=== PATIENT | female | born 1955 | race Caucasian/White ===

== ENCOUNTER 2020-12-12 20:39 | Emergency (ER) | payer MEDICARE ==
[~2020-12-12] VITALS: Ht 162.6 cm; Wt 61.4 kg
--- NOTE | 2020-12-12 21:15 | NUR ---
PT AMBULATED TO ROOM. C/O DIZZINESS AND MILD DISCOMFORT TO RIGHT SIDE MOUTH, POST BIOPSY TODAY.
[2020-12-12] MEDS ORDERED: ONDANSETRON ODT 4 MG PO ONE (21:30)
[2020-12-12] MEDS ORDERED: ONDANSETRON ODT 4 MG ONE (21:45)
--- NOTE | 2020-12-12 21:48 | NUR ---
PT A&OX4, C/O NAUSEA. MEDS GIVEN PER EMAR AND PT SITTING UP IN BED NO DISTRESS. STUNNER ANIMAL TO DRAW BLOOD. PT ON CR MONITOR, AND AT BEDSIDE.
[2020-12-12 21:59] LABS: BASOPHILS % (AUTO) 1 % (0-1); EOSINOPHILS % (AUTO) 1 % (1-7); LYMPHOCYTES % (AUTO) 19 % (22-44); MEAN CORPUSCULAR HEMOGLOBIN 32.7 pg (27.0-34.8); MEAN CORPUSCULAR HGB CONC 34.6 g/dL (32.4-35.8); MEAN PLATELET VOLUME 8.4 fL (7.4-10.4); MONOCYTES % (AUTO) 8 % (2-9); NEUTROPHILS % (AUTO) 73 % (42-75); PLATELET COUNT 207 x10^3/uL (130-400); RED BLOOD COUNT 4.29 x10^6/uL (3.82-5.3)
[2020-12-12 22:07] LABS: MD NO
[2020-12-12 22:13] LABS: ALANINE AMINOTRANSFERASE 35 U/L (12-78); ANION GAP 9 mmol/L (5-15); CALCIUM 8.7 mg/dL (8.5-10.1); CHLORIDE 101 mmol/L (98-107)
[2020-12-12 22:18] LABS: ALKALINE PHOSPHATASE 86 U/L (45-117); BILIRUBIN,TOTAL 0.5 mg/dL (0.2-1.0); CREATININE 0.65 mg/dL (0.55-1.02); TOTAL PROTEIN 7.8 g/dL (6.4-8.2); TROPONIN I < 0.015 ng/mL (0.000-0.045)
--- NOTE | 2020-12-12 23:02 | NUR ---
pt standing in room, in position of comfort. no acute distress, and cup of water provided to pt.
[2020-12-12 23:03] VITALS: BP 122/68
== END 2020-12-12 23:33 | disposition home or self-care (01) ==
LOC: ED 22:01
DX: K13.79 Other lesions of oral mucosa (principal); R11.0 Nausea; R42 Dizziness and giddiness; R53.1 Weakness; M19.90 Unspecified osteoarthritis, unspecified site
CPT/HCPCS: 36415; 80053; 84484; 85025; 93005; 99284; Q0162

== ENCOUNTER 2021-05-18 08:39 | Observation (INO) | payer MEDICARE ==
[~2021-05-18] VITALS: Ht 162.6 cm; Wt 55.1 kg
--- NOTE | 2021-05-18 08:49 | NUR ---
record press tender: EKG done in triage
--- NOTE | 2021-05-18 08:59 | NUR ---
C/O CP that started a couple of hours ago, down the middle of my chest, I thought it was heartburn but it kept getting worse, diaphoresis, I'm a retired nurse. This morning, took: Omeprazole 20mg, tylenol 350mg 0700 for fever, Mucinex for cough, Xanax 0.25mg. Pain currently 04/12. Hx: Pemphigus Vulgaris (auto-immune disease). Able to speak in complete sentences w/out difficulty. Intermittent cough noted. imaging specialist applied: KERON.
[2021-05-18] MEDS ORDERED: ALPR0.5T7 PO (09:17)
[2021-05-18] MEDS ORDERED: calcium PO (09:17)
[2021-05-18] MEDS ORDERED: multivitamin (09:17)
[2021-05-18] MEDS ORDERED: OMEP20CA20 PO (09:17)
[2021-05-18] MEDS ORDERED: DOXY25TA18 PO (09:17)
[2021-05-18] MEDS ORDERED: MELA3TAB31 PO (09:17)
[2021-05-18] MEDS ORDERED: LUTE20TA PO (09:17)
[2021-05-18] MEDS ORDERED: [UNRECOGNIZED DRUG - OTHER] (09:17)
[2021-05-18] MEDS ORDERED: PSYLLIUM (09:17)
[2021-05-18] MEDS ORDERED: vitamin D (09:17)
[2021-05-18] MEDS ORDERED: FLUC150T2 PO (09:17)
[2021-05-18] MEDS ORDERED: DEXTROMETHORPHAN PO (09:17)
[2021-05-18] MEDS ORDERED: PRED10TA PO (09:17)
[2021-05-18] MEDS ORDERED: SODIUM CHLORIDE FLUSH 10ML SYR IVF ONE (09:30)
[2021-05-18] MEDS ORDERED: ASPIRIN 81 MG TABLET CHEW PO ONE (09:30)
[2021-05-18] MEDS ORDERED: ASPIRIN 81 MG TABLET CHEW ONE (09:33)
[2021-05-18] MEDS ORDERED: NITROGLYCERIN SINGLE TAB 0.4 MG SL ONE (09:33)
[2021-05-18] MEDS: NITROGLYCERIN SINGLE TAB 0.4 MG SL PRN ×2 (09:36→09:39)
[2021-05-18 09:39] LABS: BASOPHILS % (AUTO) 0 % (0-1); EOSINOPHILS % (AUTO) 0 % (1-7); LYMPHOCYTES % (AUTO) 19 % (22-44); MEAN CORPUSCULAR HEMOGLOBIN 31.6 pg (27.0-34.8); MEAN CORPUSCULAR HGB CONC 33.9 g/dL (32.4-35.8); MEAN PLATELET VOLUME 8.1 fL (7.4-10.4); MONOCYTES % (AUTO) 9 % (2-9); NEUTROPHILS % (AUTO) 72 % (42-75); PLATELET COUNT 210 x10^3/uL (130-400); RED BLOOD COUNT 4.57 x10^6/uL (3.82-5.3); RED CELL DISTRIBUTION WIDTH 13.5 % (9.6-15.2)
--- NOTE | 2021-05-18 09:39 | NUR ---
pt refused to chew ASA tabs. States she can't chew due to her auto-immune disease. Requested water in order to swallow tabs.
[2021-05-18 09:50] LABS: ALANINE AMINOTRANSFERASE 34 U/L (12-78); ALBUMIN 3.3 g/dL (3.4-5.0); ANION GAP 9 mmol/L (5-15); CALCIUM 8.9 mg/dL (8.5-10.1); CHLORIDE 100 mmol/L (98-107); CREATININE 0.76 mg/dL (0.55-1.02)
[2021-05-18 09:55] LABS: ALKALINE PHOSPHATASE 72 U/L (45-117); BILIRUBIN,TOTAL 0.4 mg/dL (0.2-1.0); TOTAL PROTEIN 6.9 g/dL (6.4-8.2); TROPONIN I < 0.015 ng/mL (0.000-0.045)
--- NOTE | 2021-05-18 10:31 | NUR ---
PT RESTING ON [facility] HAVING CONVERSATION W/ SPOUSE. CARDIAC MONTINORING IN PROGRESS: NSR. RATES PAIN AT 12/11. PT AWAITING DISPOSITION
--- NOTE | 2021-05-18 11:18 | NUR ---
AMBULATORY TO & FROM [facility] W/OUT INCIDENT; GAIT STEADY.
--- NOTE | 2021-05-18 11:41 | NUR ---
PT ASKED SPOUSE TO BRING HER MEDS TO HOSPITAL. INSTRUCTED PT TO NOT TAKE HER OWN MEDS W/OUT GETTING APPROVAL FROM PHYSICIAN FIRST; UNDERSTANDING VERBALIZED.
--- NOTE | 2021-05-18 11:42 | NUR ---
PT STATES SHE TOOK XANAX 0.25MG A COUPLE OF MINUTES AGO. "IT WAS IN MY PURSE AND I TAKE IT THREE TIMES A DAY". WILL INFORM RECEIVING RN.
--- NOTE | 2021-05-18 11:52 | NUR ---
PT REPORT TO SHERLYN BOOGIE FOR ROOM [id number]
[2021-05-18 12:42] VITALS: BP 114/77
[2021-05-18 14:57] VITALS: BP 124/68
[2021-05-18] MEDS ORDERED: ONDANSETRON 2MG/ML, 2ML IV PRN (15:00)
[2021-05-18] MEDS ORDERED: morphine SULFATE 10 MG/ML, 1ML IVPush PRN (15:00)
[2021-05-18] MEDS ORDERED: NITROGLYCERIN 0.4 MG BOTTLE (25 TABS) SL PRN (15:00)
[2021-05-18] MEDS ORDERED: NITROGLYCERIN 0.4 MG/SPRAY SL PRN (15:00)
[2021-05-18] MEDS ORDERED: BISACODYL 10 MG SUPP PR PRN (15:00)
[2021-05-18] MEDS ORDERED: HYDROcodone/APAP 5/325 TABLET PO PRN (15:00)
[2021-05-18] MEDS ORDERED: ASPIRIN 325 MG TABLET EC PO ONE (15:00)
[2021-05-18 15:30] LABS: CHOLESTEROL, TOTAL 196 mg/dL (140-239)
[2021-05-18 15:34] LABS: HDL CHOL % 49 % (28-40); HDL CHOLESTEROL (DIRECT) 96 mg/dL (40-60); LDL CHOLESTEROL,CALCULATED 78 mg/dL (54-169); LDL/HDL RATIO 0.8 (0.5-3.0); TRIGLYCERIDES 110 mg/dL (50-200); TROPONIN I < 0.015 ng/mL (0.000-0.045); VLDL CHOLESTEROL 22 mg/dL (0-25)
[2021-05-18] MEDS: ENOXAPARIN 40 MG/0.4 ML SQ SCH (18:35)
[2021-05-18] MEDS: PANTOPRAZOLE 40 MG IV IVPush SCH (18:35)
[2021-05-18 20:56] VITALS: BP 122/73
[2021-05-18] MEDS ORDERED: DOXYLAMINE 25MG TABLET HOMEMEDPO SCH (21:00)
[2021-05-18] MEDS: SODIUM CHLORIDE FLUSH 10ML SYR IVF SCH (21:00)
[2021-05-18] MEDS ORDERED: MELATONIN 3 MG TABLET PO SCH (21:00)
[2021-05-18] MEDS: ACETAMINOPHEN 325 MG TABLET PO PRN (21:32)
[2021-05-18 21:46] LABS: TROPONIN I < 0.015 ng/mL (0.000-0.045)
[2021-05-19 01:27] VITALS: BP 136/66
[2021-05-19 03:23] LABS: MEAN CORPUSCULAR HEMOGLOBIN 31.5 pg (27.0-34.8); MEAN CORPUSCULAR HGB CONC 34.1 g/dL (32.4-35.8); MEAN PLATELET VOLUME 8.1 fL (7.4-10.4); PLATELET COUNT 193 x10^3/uL (130-400); RED BLOOD COUNT 4.42 x10^6/uL (3.82-5.3); RED CELL DISTRIBUTION WIDTH 13.6 % (9.6-15.2)
[2021-05-19 03:33] LABS: ALANINE AMINOTRANSFERASE 30 U/L (12-78); ALBUMIN 2.8 g/dL (3.4-5.0); ANION GAP 7 mmol/L (5-15); CALCIUM 8.7 mg/dL (8.5-10.1); CHLORIDE 104 mmol/L (98-107); CREATININE 0.66 mg/dL (0.55-1.02)
[2021-05-19 03:37] LABS: ALKALINE PHOSPHATASE 69 U/L (45-117); BILIRUBIN,TOTAL 0.4 mg/dL (0.2-1.0); TOTAL PROTEIN 6.6 g/dL (6.4-8.2); TROPONIN I < 0.015 ng/mL (0.000-0.045)
[2021-05-19] MEDS: PANTOPRAZOLE 40 MG IV IVPush SCH ×2 (05:23→17:10)
[2021-05-19] MEDS ORDERED: ASPIRIN 325 MG TABLET EC PO SCH (06:00)
[2021-05-19 07:19] VITALS: BP 113/66
[2021-05-19] MEDS ORDERED: FLUCONAZOLE 100 MG TABLET ONE ×2 (08:13→11:55)
[2021-05-19] MEDS: SODIUM CHLORIDE FLUSH 10ML SYR IVF SCH (08:23)
[2021-05-19] MEDS: ACETAMINOPHEN 325 MG TABLET PO PRN (08:28)
[2021-05-19] MEDS ORDERED: FLUCONAZOLE 50 MG TABLET PO SCH (09:00)
[2021-05-19] MEDS ORDERED: SUCR1ORA5 PO (12:20)
[2021-05-19] MEDS ORDERED: PANT40TA3 PO (12:20)
[2021-05-19 12:44] VITALS: BP 92/58
[2021-05-19] MEDS: ENOXAPARIN 40 MG/0.4 ML SQ SCH (15:57)
== END 2021-05-19 18:54 | disposition home or self-care (01) ==
LOC: ED 09:36 → EDIP 10:44 → INTOOBSV 10:44 → 5SO 12:12
PROVIDERS: ADMIT Internal Medicine; ATTEND Internal Medicine
DX: R07.89 Other chest pain (principal); L10.0 Pemphigus vulgaris; F41.9 Anxiety disorder, unspecified; R32 Unspecified urinary incontinence; T38.0X5A Adverse effect of glucocorticoids and synthetic analogues, initial encounter; Z79.52 Long term (current) use of systemic steroids; Z79.899 Other long term (current) drug therapy
CPT/HCPCS: 36415; 71045; 74240; 76700; 76705; 78452; 80053; 80061; 83690; 84484; 85025; 85027; 93005; 93017; 93306; 93356; 96372; 96374; 96376; 99285; A9502; C9113; G0378; J1650; J7512